=== PATIENT | male | born 1960 | race Caucasian/White ===

== ENCOUNTER 2017-09-28 12:04 | Emergency (ER) | payer OTHER ==
[~2017-09-28] VITALS: Ht 180.3 cm; Wt 100.0 kg
[~2017-09-28 12:04] MED LIST: 00186-0370-20 IH; ALBUTEROL0.09 MG/A1 IH; ALBUTEROL0.83 MG/ML IH; ALEVE; ASMANEX TW0.22 MG/A1 IH; ASPIRIN 81M81 MG/TA2 PO; ASPIRIN E.C. 8181 MG PO; ATROVENT INHALE14 GM IH; BUPROPION75 MG PO; CEPHALEXIN250 M1 PO; CEPHALEXIN500 M1 PO; COMBIVENT INH14.7 GM IH; CRESTOR40 MG PO; DOXYCYCLINE 10100 MG PO; FLEXERIL 1010 MG/TAB PO; FORADIL IH; GABAPENTIN300 MG PO; GLIPIZIDE10 MG PO; GLUCOPHAGE1000 MG PO; HCTZ 25MG25 MG PO; LANTUS100 U/ML SQ; LEVEMIR FLEXPEN SC; LEVITRA20 MG PO; LISINOPRIL40 MG PO; LORTAB 5/500 501 TAB PO; LORTAB 7.5/5001 TAB PO; METFORMIN1000 MG PO; MULTI VITAMINS1 TAB PO; NAPROSYN500 MG PO; NAPROXEN500 M1 PO; NEURONTIN300 MG/CAP PO; NORCO 325 MG-51 TAB PO; NORCO 325 MG-7.1 TAB PO; NOVOLOG 100U100 U/ML SQ; PREDNISONE 5MG5 MG PO; PREDNISONE20 MG PO; PRINZIDE 25 MG-1 TAB PO; PROVENTIL0.09 MG/A1 IH; RT ALBUTER2.5 MG/0.5 IH; SEPTRA DS 8001 TAB PO; SERTRALINE100 MG PO; THEO-DUR 2200 MG/TAB PO; TRAZADONE HYDR100 MG PO; ULTRAM 50MG TAB50 MG; UNABLE; VENTOLIN0.09 MG IH; VOLTAREN 50MG T50 MG PO; ZANTAC 150MG T150 MG PO; ZOLOFT 50MG50 MG PO
[2017-09-28 12:09] VITALS: BP 180/81; TEMP 98
[2017-09-28] MEDS ORDERED: DESYREL 100MG100 MG PO (12:40)
[2017-09-28] MEDS ORDERED: PREDNISONE20 MG PO (13:59)
[2017-09-28] MEDS ORDERED: DOXYCYCLINE 10100 MG PO (13:59)
[2017-09-28 14:00] VITALS: PULSE 92
== END 2017-09-28 14:00 | disposition home or self-care (01) ==
LOC: COL.ER 12:04
DX: J44.1 Chronic obstructive pulmonary disease with (acute) exacerbation (principal); E11.42 Type 2 diabetes mellitus with diabetic polyneuropathy; F17.210 Nicotine dependence, cigarettes, uncomplicated; Z79.4 Long term (current) use of insulin; Z98.890 Other specified postprocedural states
CPT/HCPCS: J7512

== ENCOUNTER 2018-02-09 14:30 | Emergency (ER) | payer OTHER ==
[~2018-02-09] VITALS: Ht 182.9 cm; Wt 97.9 kg
[~2018-02-09 14:30] MED LIST changes: +DESYREL 100MG100 MG PO
[2018-02-09 14:39] VITALS: TEMP 97.5
[2018-02-09] MEDS ORDERED: LEVAQUIN 5500 MG/TA1 PO (18:43)
[2018-02-09] MEDS ORDERED: PREDNISONE20 MG PO (18:43)
[2018-02-09 18:54] VITALS: BP 148/90; PULSE 87
== END 2018-02-09 18:55 | disposition home or self-care (01) ==
LOC: COL.ER 14:30
DX: J44.1 Chronic obstructive pulmonary disease with (acute) exacerbation (principal); I10 Essential (primary) hypertension; E11.9 Type 2 diabetes mellitus without complications; E78.5 Hyperlipidemia, unspecified; F17.210 Nicotine dependence, cigarettes, uncomplicated; Z79.4 Long term (current) use of insulin; Z79.52 Long term (current) use of systemic steroids
CPT/HCPCS: J7512

== ENCOUNTER 2018-06-12 11:38 | Observation (INO) | payer OTHER ==
[~2018-06-12] VITALS: Ht 180.3 cm; Wt 93.2 kg
[~2018-06-12 11:38] MED LIST changes: +LEVAQUIN 5500 MG/TA1 PO
[2018-06-12 12:07] LABS: BASO # 0.1 (0.0-0.2); BASO % 0.9 % (0.0-2.0); EOS # 0.2 (0.0-0.7); EOS % 1.6 % (0-4.0); GRAN # 6.8 (1.4-6.5); GRAN % 70.8 % (42.2-75.2); HEMATOCRIT 43.4 % (42.0-52.0); HEMOGLOBIN 14.4 g/dl (13.5-18.0); LYMPH # 2.1 (1.2-3.4); LYMPH % 21.4 % (20.0-51.0); MEAN CELL VOLUME 83 fl (80.0-100.0); MEAN CORPUSCULAR HEMOGLOBIN 28 pg (27.0-31.0); MEAN CORPUSCULAR HGB CONC 33 g/dl (33.0-37.0); MONO # 0.5 (0.1-0.6); PLATELET COUNT 329 K/mm3 (130-400); RED BLOOD COUNT 5.21 M/mm3 (4.20-5.60); REDCELL DISTRIBUTION WIDTH-CV 14.8 % (11.5-14.5)
[2018-06-12 12:14] LABS: PROTHROMBIN TIME 11.6 SECONDS (9.7-12.8)
[2018-06-12 12:20] LABS: ALANINE AMINOTRANSFERASE 32 U/L (21-72); ALKALINE PHOSPHATASE 73 U/L (50-136); ANION GAP 10 mmol/L (7-16); AST,SGOT 13 U/L (15-37); BILIRUBIN,TOTAL 0.4 mg/dL (0.0-1.0); BLOOD UREA NITROGEN 15 mg/dL (9-20); CALCIUM 8.9 mg/dL (8.4-10.2); CARBON DIOXIDE 25 mmol/L (22-30); CHLORIDE 101 mmol/L (98-107); CREATININE, serum 0.75 mg/dL (0.66-1.25); GLUCOSE 181 mg/dL (74-106); POTASSIUM 4.4 mmol/L (3.4-5.0); SODIUM 135 mmol/L (137-145); TOTAL PROTEIN 6.7 gm/dL (6.4-8.2)
[2018-06-12 12:31] LABS: TROPONIN-I < 0.012 ng/mL (0.000-0.034)
[2018-06-12 17:04] VITALS: BP 170/75; PULSE 74; TEMP 97.7
[2018-06-12 19:26] VITALS: BP 134/77; PULSE 72; TEMP 98
[2018-06-12 23:31] VITALS: BP 132/68; PULSE 82; TEMP 97.7
[2018-06-13 03:47] VITALS: BP 137/74; PULSE 81; TEMP 97.8
[2018-06-13 07:17] VITALS: BP 131/74; PULSE 80; TEMP 97.2
[2018-06-13 11:29] VITALS: BP 115/85; PULSE 102; TEMP 98.4
[2018-06-13] MEDS ORDERED: ASPIRIN E.C. 8181 MG PO (13:31)
== END 2018-06-13 15:49 | disposition home or self-care (01) ==
LOC: COL.ER 11:38 → MEDICAL 13:10
PROVIDERS: Emergency Medicine; Physician Assistant
DX: G45.9 Transient cerebral ischemic attack, unspecified (principal); E78.5 Hyperlipidemia, unspecified; J44.9 Chronic obstructive pulmonary disease, unspecified; E11.40 Type 2 diabetes mellitus with diabetic neuropathy, unspecified; F17.210 Nicotine dependence, cigarettes, uncomplicated; I10 Essential (primary) hypertension; Z79.4 Long term (current) use of insulin; Z82.49 Family history of ischemic heart disease and other diseases of the circulatory system; Z82.5 Family history of asthma and other chronic lower respiratory diseases
CPT/HCPCS: A9585; G0378; G8978-GP; G8979-GP; G8987-GO; G8988-GO; G8996-GN; G8997-GN; J1650; J1815; J7030

== ENCOUNTER 2020-04-21 15:40 | Emergency (ER) | payer MEDICARE ==
[~2020-04-21] VITALS: Ht 180.3 cm; Wt 87.3 kg
[2020-04-21 15:45] VITALS: TEMP 98.3
[2020-04-21 17:04] VITALS: BP 110/81; PULSE 88
== END 2020-04-21 17:05 | disposition home or self-care (01) ==
LOC: COL.ER 15:40
DX: S43.401A Unspecified sprain of right shoulder joint, initial encounter (principal); S00.93XA Contusion of unspecified part of head, initial encounter; I10 Essential (primary) hypertension; E11.9 Type 2 diabetes mellitus without complications; J44.9 Chronic obstructive pulmonary disease, unspecified; Z79.51 Long term (current) use of inhaled steroids; Z79.82 Long term (current) use of aspirin; Z79.899 Other long term (current) drug therapy; Z79.84 Long term (current) use of oral hypoglycemic drugs; W01.10XA Fall on same level from slipping, tripping and stumbling with subsequent striking against unspecified object, initial encounter; Y92.512 Supermarket, store or market as the place of occurrence of the external cause

== ENCOUNTER 2021-12-03 18:20 | Emergency (ER) | payer OTHER, MEDICARE ==
[~2021-12-03] VITALS: Ht 180.3 cm; Wt 88.2 kg
[2021-12-03 19:19] LABS: BASO # 0.1 K/mm3 (0.0-0.2); EOS # 0.1 K/mm3 (0.0-0.7); EOS % 1.5 % (0.0-4.0); GRAN # 6.9 K/mm3 (1.4-6.5); GRAN % 76.6 % (42.2-75.2); HEMATOCRIT 41.1 % (42.0-52.0); HEMOGLOBIN 13.5 g/dl (13.5-18.0); LYMPH # 1.2 K/mm3 (1.2-3.4); LYMPH % 13.2 % (20.0-51.0); MEAN CELL VOLUME 83 fl (80.0-100.0); MEAN CORPUSCULAR HEMOGLOBIN 27 pg (27-31); MEAN CORPUSCULAR HGB CONC 33 g/dl (33.0-37.0); MEAN PLATELET VOLUME 10.3 fl (7.4-10.4); MONO # 0.7 K/mm3 (0.1-0.6); MONO % 7.4 % (1.7-9.3); PLATELET COUNT 345 K/mm3 (130-400); RED BLOOD COUNT 4.98 M/mm3 (4.20-5.60)
[2021-12-03 19:31] LABS: BILIRUBIN,TOTAL 0.3 mg/dL (0.2-1.2); C-REACTIVE PROTEIN 6.87 mg/dL (0.00-0.50); CREATININE, serum 0.85 mg/dL (0.72-1.25); POTASSIUM 4.3 mmol/L (3.5-4.5); TOTAL PROTEIN 6.7 gm/dL (6.2-8.1)
[2021-12-03] MEDS ORDERED: BACTRIM DS 8001 TAB PO (21:46)
[2021-12-03] MEDS ORDERED: CEPHALEXIN500 M1 PO (21:46)
[2021-12-03 21:57] VITALS: BP 147/87; PULSE 94; TEMP 98.1
== END 2021-12-03 21:57 | disposition home or self-care (01) ==
LOC: COL.ER 18:20
PROVIDERS: Nurse Practitioner
DX: L03.115 Cellulitis of right lower limb (principal); I10 Essential (primary) hypertension; E11.40 Type 2 diabetes mellitus with diabetic neuropathy, unspecified; E78.5 Hyperlipidemia, unspecified; J44.9 Chronic obstructive pulmonary disease, unspecified; F17.210 Nicotine dependence, cigarettes, uncomplicated; Z79.84 Long term (current) use of oral hypoglycemic drugs; Z79.899 Other long term (current) drug therapy
CPT/HCPCS: Q9967